=== PATIENT | female | born 1930 | race Caucasian/White ===

== ENCOUNTER 2017-07-09 12:06 | Inpatient (IN) | payer OTHER, MEDICARE ==
[~2017-07-09] VITALS: Ht 149.9 cm; Wt 59.2 kg
[2017-07-09 14:34] LABS: ABSOLUTE BASOPHIL COUNT 0.1 /CUMM (0.0-0.2); ABSOLUTE EOSINOPHIL COUNT 0 /CUMM (0.0-0.7); ABSOLUTE GRANULOCYTE CT 14.3 /CUMM (1.4-6.5); ABSOLUTE LYMPH COUNT 0.7 /CUMM (1.2-3.4); BASOPHIL % 0.4 % (0.0-2.0); EOSINOPHIL % 0 % (0-5); HEMATOCRIT 42.8 % (37-47); MEAN CORPUSCULAR HGB 30.5 PG (27.0-31.0); MEAN CORPUSCULAR VOLUME 92.4 FL (81.0-99.0); MEAN PLATELET VOLUME 7.4 FL (7.4-10.4); PLATELET COUNT 190 /CUMM (130-400); RBC DISTRIBUTION WIDTH 13.7 % (11.5-14.5); RED BLOOD CELL CT 4.64 /CUMM (4.20-5.40)
[2017-07-09 14:46] LABS: PT 12.7 SEC (9.4-12.5); PTT 29 SEC (25-37)
--- NOTE | 2017-07-09 15:05 | ED MVC/FALL/TRAUMA COMPLAINT ---
History of Present Illness General Chief Complaint: Fall Stated Complaint: FALL THIS AM, R HIP PAIN Source: patient Exam Limitations: no limitations Vital Signs & Intake/Output Vital Signs & Intake/Output Vital Signs Date Time Temp Pulse Resp B/P B/P Pulse O2 O2 Flow FiO2 Mean Ox Delivery Rate 07/09 1652 152/73 07/09 1431 97.8 106 20 170/96 96 Room Air 07/09 1223 96.8 104 18 136/72 93 Room Air Triage Note: PT TO ED S/P FALLING WHEN WALKING HER DOG. STATES THE DOG PULLED AND SHE FELL ONTO HER RIGHT SIDE. IS CURRENTLY C/O RT HIP/RT LOWER BACK PAIN. HAS NOT BEEN AMBULATORY MUCH SINCE THE FALL. IS CURRENTY IN W/C IN TRIAGE AND ABLE TO LIFT RIGHT LEG UP. +CMS TO RIGHT LEG. ALSO WAS ABLE TO CROSS RIGHT LEG OVER ONTO THE LEFT DRAFTER CIVIL WELL PER FAMILY MEMBER. DENIES ANY HEAD STRIKE. Triage Nurses Notes Reviewed? yes Onset: Abrupt Duration: day(s): (1), constant, continues in ED, getting worse Timing: single episode today Severity: moderate, severe Severity Numbers: 8 Injuries/Fall Location: lower extremity Method of Injury: fall Loss of Consciousness: no loss of consciousness No Modifying Factors: none LMP (ages 10-50): unknown : No Patient currently breastfeeds: No HPI: 86 year old female past medical history of hypertension and urinary incontinence presents for evaluation after a fall. Patient states she was walking her dog when the dog pulled her causing her to fall. She landed on her right hip. She was unable to get up without help. She was not on the ground for an extended period time. She reports pain in her right hip and lower back. There was no head strike or loss of conscious. No blood thinners. She cannot ambulate. She rates pain as an 8 or 10 is not taking anything. No change in vision nausea vomiting. No other medical problems. (Roland RAINEY,Audie) Allergies Coded Allergies: aspirin (Intermediate, HIVES 07/09/17) morphine (UNKNOWN 07/09/17) Reconcile Medications Lisinopril 20 MG TABLET 1 TAB PO DAILY HTN (Reported) Melatonin 3 MG TABLET 3 MG PO AT BEDTIME PRN INSOMNIA Mirabegron (Myrbetriq) 50 MG TAB.ER.24H 1 TAB PO DAILY BLADDER HEALTH ( Reported) Solifenacin Succinate (Vesicare) 5 MG TABLET 1 TAB PO EOD BLADDER HEALTH ( Reported) Tramadol HCl 50 MG TABLET 1 MG PO Q4P PRN PAIN SCALE 7-10 (SEVERE) Triamterene/Hydrochlorothiazid (Triamterene-Hctz 37.5-25 MG Cp) 37.5 MG-25 MG CAPSULE 1 CAP PO DAILY WATER RETENTION (Reported) (Criss SCRUGGS,Ar Caraballo) Past History Travel History Traveled to [place] past 21 day No Medical History Any Pertinent Medical History? see below for history Cardiovascular: hypertension Renal: urinary incontinence Surgical History Surgical History: non-contributory Psychosocial History What is your primary language Greenlandic Tobacco Use: Never used Family History Hx Contributory? No (Audie Gamble) Review of Systems Review of Systems Constitutional: Reports: no symptoms. Eyes: Reports: no symptoms. Ears, Nose, Throat, Mouth: Reports: no symptoms. Respiratory: Reports: no symptoms. Cardiovascular: Reports: no symptoms. Gastrointestinal/Abdominal: Reports: no symptoms. Genitourinary: Reports: no symptoms. Musculoskeletal: Reports: see HPI, back pain, joint pain, muscle pain, muscle stiffness. Skin: Reports: no symptoms. Neurological/Psychological: Reports: no symptoms. All Other Systems: Reviewed and Negative (Audie Gamble) Physical Exam Physical Exam General Appearance: well developed/nourished, no apparent distress, alert, awake Head: atraumatic, normal appearance Eyes: Bilateral: normal appearance, PERRL, EOMI. Ears, Nose, Throat, Mouth: hearing grossly normal, moist mucous membrane Neck: normal inspection, supple, full range of motion Respiratory: normal breath sounds, chest non-tender, no respiratory distress, lungs clear Cardiovascular: regular rate/rhythm, normal peripheral pulses Peripheral Pulses: 2+ radial (R), 2+ radial (L) Gastrointestinal: normal bowel sounds, soft, non-tender, no organomegaly Back: normal inspection, normal range of motion, LUMBAR PARASPINOUS MUSCLES TENDER TO PALPATION BILATERALLY. nO BRUISING SWELLING OR ABRASIONS NO MIDLINE TENDERNESS TO CELLS OR DEFORMITIES Extremities: RANGE OF MOTION OF THE RIGHT HIP IS REDUCED DUE TO PAIN. tHERE IS BRUISING LATERAL ASPECT OF THE RIGHT HIP. sEVERE TENDERNESS PALPATION AT THE LATERAL ASPECT. fULL RANGE OF MOTION OF THE RIGHT KNEE AND RIGHT ANKLE IS INTACT. nO OTHER JOINT SWELLING OR PAIN NEUROVASCULAR SUPPLY IS INTACT TO THE RIGHT LOWER EXTREMITY. Neurologic/Psych: no motor/sensory deficits, awake, alert, oriented x 3 Skin: intact, normal color, warm/dry Core Measures ACS in differential dx? No CVA/TIA Diagnosis No Sepsis Present: No Sepsis Focused Exam Completed? No (Roland RAINEY,Audie) Progress Differential Diagnosis: abd injury, C/T/L spine injury, ICH, pelvis injury, FRACTURE, CONTUSION, SPRAIN Plan of Care: Orders Procedure Date/time Status PT Evaluate & Treat 07/11 07 Active Nothing by Mouth 07/10 B Active CBC WITHOUT DIFFERENTIAL 07/10 06 Active BASIC ELECTROLYTES PLUS BUN&CR 07/10 06 Active Nothing by Mouth 07/09 D Complete Pathway - chart 07/09 162 Active House Staff 07/09 162 Active Patient Data 07/09 1618 Active Add-on Test (ER Only) 07/09 1419 Active URINALYSIS 07/09 1409 Complete TROPONIN LEVEL 07/09 1409 Complete PARTIAL THROMBOPLASTIN TIME 07/09 1409 Complete PROTHROMBIN TIME 07/09 1409 Complete COMPREHENSIVE METABOLIC PANEL 07/09 1409 Complete CBC WITHOUT DIFFERENTIAL 07/09 1409 Complete EKG 07/09 1409 Active TYPE & SCREEN (NOT X-MATCH) 07/09 1409 Active VTE Mechanical Prophylaxis 07/09 UNK Active Jacinto, Insertion/Removal/Asses 07/09 UNK Active Current Medications Sig/Tana Start time Last Medication Dose Stop Time Status Admin Heparin Sodium 5,000 UNIT Q8 07/09 2200 UNVr (Porcine) Acetaminophen 650 MG Q6P PRN 07/09 1630 UNVr (Tylenol) Sodium Chloride 1,000 ML .[id number] 07/09 1630 UNVr (Normal Saline 0.9%) Laboratory Tests 07/09/17 1615: Urine Color YEL, Urine Clarity CLEAR, Urine pH 7.0, Ur Specific [place] 1.020, Urine Protein TRACE H, Urine Ketones TRACE H, Urine Nitrite NEG, Urine Bilirubin NEG, Urine Urobilinogen 0.2, Ur Leukocyte Esterase NEG, Ur Microscopic SEDIMENT EXAMINED, Urine RBC FEW H, Urine WBC RARE, Ur Epithelial Cells RARE, Urine Bacteria RARE H, Urine Mucus RARE, Urine Hemoglobin TRACE-INTACT, Urine Glucose NEG 07/09/17 1420: Anion Gap 11, Estimated GFR 47 L, BUN/Creatinine Ratio 32.7 H, Glucose 133 H, Calcium 10.2, Total Bilirubin 1.8 H, AST 46 H, ALT 41, Alkaline Phosphatase 56 , Troponin I 0.05, Total Protein 7.3, Albumin 4.4, Globulin 2.9, Albumin/ Globulin Ratio 1.5, PT 12.7 H, INR 1.16, APTT 29, CBC w Diff MAN DIFF ORDERED, RBC 4.64, MCV 92.4, MCH 30.5, MCHC 33.0, RDW 13.7, MPV 7.4, Gran % 89.0 H, Lymphocytes % 4.1 L, Monocytes % 6.5, Eosinophils % 0, Basophils % 0.4, Absolute Granulocytes 14.3 H, Segmented Neutrophils 91 H, Absolute Lymphocytes 0.7 L, Lymphocytes 4 L, Monocytes 4, Absolute Monocytes 1.0 H, Eosinophils 1, Absolute Eosinophils 0, Absolute Basophils 0.1, Platelet Estimate VERIFIED BY SMEAR, Normocytic RBCs VERIFIED, Normochromic RBCs VERIFIED Patient seen and evaluated. She had a mechanical fall landed on her right hip. There was no head strike or loss of conscious. She has severe pain to lateral aspect of the right hip shows has some low back pain. No other injuries. We'll check x-rays of the right hip and lower back. Patient medicated with IV Tylenol. X-rays show a right subcapital impacted hip fracture. Neurovascular is intact. Spoke Darryl Long MD he will be taking the patient to the OR. Patient will be admitted to medicine. Case discussed with Dr. Kahn he agrees. Diagnostic Imaging: Viewed by Me: Radiology Read. Discussed w/RAD: Radiology Read. Radiology Impression: PATIENT: ALKA MONTE PRESENT AGE: 86 PATIENT ACCOUNT NO: [id number] : 30 LOCATION: [facility] ORDERING PHYSICIAN: Audie RAINEY SERVICE DATE: 07/09/17 EXAM TYPE: RAD - XRY-AP PELVIS; XRY-HIP 2-3 VIEWS, RIGHT; XRY-LUMBOSACRAL SPINE 4 VIEWS EXAMINATION: XR PELVIS XR HIP, RIGHT XR LUMBAR SPINE CLINICAL INFORMATION: Right hip pain after fall. Fall onto right hip. Low back pain after fall. COMPARISON: None TECHNIQUE: AP view of the pelvis, 4 views of the lumbar spine, and 2 views of the right hip were performed. FINDINGS: Lumbar spine: There is grade 1 anterolisthesis of L4 on L5 and trace retrolisthesis of L2 on L3 and trace anterolisthesis of L5 on S1. There is intervertebral disc height loss at L2-L3, L3-L4, and L4-L5. There is multilevel facet arthropathy which is moderate at L4- L5 and moderate to severe at L5-S1. No fracture is seen. There is mild levoscoliotic curvature centered in the lower lumbar spine. There are atheromatous calcifications in the abdominal aorta. Pelvis: The pelvic rings are intact. There are mild degenerative changes at the pubic symphysis and at the left more than right sacroiliac joints. The soft tissues are within normal limits. Right hip: There is a fracture through the subcapital neck of the right femur with associated impaction. The femoral neck is foreshortened. There are mild degenerative changes at the right hip joint without joint space loss. Soft tissues appear normal. IMPRESSION: - Impacted right subcapital femoral neck fracture. No dislocation. - No pelvic fracture. - Multilevel degenerative spondylotic changes with grade 1 anterolisthesis of L4 on L5, and multilevel disc height loss and facet arthropathy. DICTATED BY: Lucie Ghosh MD DATE/ TIME DICTATED:07/09/171500 CRITICAL CARE TECHNICIAN:CATALINA DATE/TIME TRANSCRIBED: 07/09/171500 Initial ED EKG: SINUS TACH, LEFT ATRIAL ABN (Audie Gamble) Departure Departure Disposition: STILL A PATIENT Condition: Stable Clinical Impression Primary Impression: Subcapital fracture of hip Qualifiers: Encounter type: initial encounter Fracture type: closed Laterality: right Qualified Code: S72.011A - Unspecified intracapsular fracture of right femur, initial encounter for closed fracture Referrals: Nilson SCRUGGS,Stepan Rodrigues (PCP/Family) Departure Forms: Customer Survey General Discharge Information Admission Note Spoke With: Antonio Yung MD Documentation of Exam: Documentation of any treatments & extenuating circumstances including Concerns Regarding Discharge (functional status, medication knowledge or non-compliance, living conditions, etc.) that warrant an admission rather than observation: [IV pain medicine, case management, physical therapy, orthopedic consult, right hip surgery] (Audie Gamble) Departure Prescriptions: Current Visit Scripts Tramadol HCl 1 MG PO Q4P PRN PAIN SCALE 7-10 (SEVERE) #10 TAB Melatonin 3 MG PO AT BEDTIME PRN INSOMNIA #30 TAB PA/SYSTEM TRAINER Co-Sign Statement Statement: ED Attending supervision documentation- [x] I saw and evaluated the patient. I have also reviewed all the pertinent lab results and diagnostic results. I agree with the findings and the plan of care as documented in the PA's/SYSTEM TRAINER's documentation. Patient presents for evaluation of right hip pain after falling walking her dog. Physical examination reveals tenderness with internal and external rotation of the right hip. [] I have reviewed the ED Record and agree with the PA's/SYSTEM TRAINER's documentation. [] Additions or exceptions (if any) to the PAs/SYSTEM TRAINER's note and plan are summarized below: [] (Criss SCRUGGS,Ar Caraballo)
--- NOTE | 2017-07-09 15:14 | RADIOLOGY REPORT ---
EXAMINATION: XR PELVIS XR HIP, RIGHT XR LUMBAR SPINE CLINICAL INFORMATION: Right hip pain after fall. Fall onto right hip. Low back pain after fall. COMPARISON: None TECHNIQUE: AP view of the pelvis, 4 views of the lumbar spine, and 2 views of the right hip were performed. FINDINGS: Lumbar spine: There is grade 1 anterolisthesis of L4 on L5 and trace retrolisthesis of L2 on L3 and trace anterolisthesis of L5 on S1. There is intervertebral disc height loss at L2-L3, L3-L4, and L4-L5. There is multilevel facet arthropathy which is moderate at L4-L5 and moderate to severe at L5-S1. No fracture is seen. There is mild levoscoliotic curvature centered in the lower lumbar spine. There are atheromatous calcifications in the abdominal aorta. Pelvis: The pelvic rings are intact. There are mild degenerative changes at the pubic symphysis and at the left more than right sacroiliac joints. The soft tissues are within normal limits. Right hip: There is a fracture through the subcapital neck of the right femur with associated impaction. The femoral neck is foreshortened. There are mild degenerative changes at the right hip joint without joint space loss. Soft tissues appear normal. IMPRESSION: - Impacted right subcapital femoral neck fracture. No dislocation. - No pelvic fracture. - Multilevel degenerative spondylotic changes with grade 1 anterolisthesis of L4 on L5, and multilevel disc height loss and facet arthropathy.
--- NOTE | 2017-07-09 16:22 | History & Physical ---
Babita SCRUGGS,[facility] 07/09/17 1622: General Information and HPI MD Statement: I have seen and personally examined ALKA MONTE and documented this H&P. The patient is a 86 year old F who presented with a patient stated chief complaint of [right hip pain]. Source of Information: patient, old records Exam Limitations: clinical condition History of Present Illness: 86 yo F with PMH of hypertension and urinary incontinence presented to the ED for right hip pain after having a fall. The patient states that earlier today she was walking her dog when he pulled her causing her to fall down and landing on her right side. She denies any chest pain, palpitations, lightheadedness, dizziness or any other symptoms proceeding the fall. She denies hitting her head or losing consciousness with the fall. Her son helped her get up. She was brought to the ED for further evaluation. At baseline she is independent and does not require any walking aid. She had similar fall last year when her dog pulled her again at that time. Past History Travel History Traveled to [place] past 21 day No Medical History Cardiovascular: hypertension Renal: urinary incontinence Surgical History Surgical History: non-contributory Review of Systems Review of Systems Constitutional: Denies: chills, fever. EENTM: Reports: no symptoms. Cardiovascular: Denies: chest pain, palpitations. Respiratory: Denies: short of breath. GI: Denies: abdominal pain. Genitourinary: Reports: no symptoms. Musculoskeletal: Denies: joint pain. Skin: Reports: no symptoms. Neurological/Psychological: Reports: no symptoms. Hematologic/Endocrine: Reports: no symptoms. Exam & Diagnostic Data Last 24 Hrs of Vital Signs/I&O Vital Signs Date Time Temp Pulse Resp B/P B/P Pulse O2 O2 Flow FiO2 Mean Ox Delivery Rate 07/09 1431 97.8 106 20 170/96 96 Room Air 07/09 1223 96.8 104 18 136/72 93 Room Air Physical Exam General Appearance Alert, Oriented X3, Cooperative, Mild Distress Skin No Rashes, No Breakdown Skin Temp/Moisture Exam: Warm/Dry Sepsis Skin Exam (color): Normal for Ethnicity HEENT Atraumatic Cardiovascular Normal S1, Normal S2, No Murmurs Lungs Clear to Auscultation, Normal Air Movement Abdomen Soft, No Tenderness Neurological Normal Speech Extremities No Edema Last 24 Hrs of Labs/Beltran: Laboratory Tests 07/09/17 1615: Urine Color Pending, Urine Clarity Pending, Urine pH Pending, Ur Specific [place] Pending, Urine Protein Pending, Urine Ketones Pending, Urine Nitrite Pending, Urine Bilirubin Pending, Urine Urobilinogen Pending, Ur Leukocyte Esterase Pending, Ur Microscopic Pending, Urine Hemoglobin Pending, Urine Glucose Pending 07/09/17 1420: Anion Gap 11, Estimated GFR 47 L, BUN/Creatinine Ratio 32.7 H, Glucose 133 H, Calcium 10.2, Total Bilirubin 1.8 H, AST 46 H, ALT 41, Alkaline Phosphatase 56 , Troponin I 0.05, Total Protein 7.3, Albumin 4.4, Globulin 2.9, Albumin/ Globulin Ratio 1.5, PT 12.7 H, INR 1.16, APTT 29, CBC w Diff MAN DIFF ORDERED, RBC 4.64, MCV 92.4, MCH 30.5, MCHC 33.0, RDW 13.7, MPV 7.4, Gran % 89.0 H, Lymphocytes % 4.1 L, Monocytes % 6.5, Eosinophils % 0, Basophils % 0.4, Absolute Granulocytes 14.3 H, Segmented Neutrophils 91 H, Absolute Lymphocytes 0.7 L, Lymphocytes 4 L, Monocytes 4, Absolute Monocytes 1.0 H, Eosinophils 1, Absolute Eosinophils 0, Absolute Basophils 0.1, Platelet Estimate VERIFIED BY SMEAR, Normocytic RBCs VERIFIED, Normochromic RBCs VERIFIED Assessment/Plan Assessment: 86 yo F with PMH of hypertension and urinary incontinence presented to the ED for right hip pain after having a fall. On admission labs were significant for leukocytosis, mild hyponatremia (Na 136), and elevated BUN/CR of 36 and 1.1. Assessment: 1. Right Femoral Neck Fracture 2. ?SONA 3. History of Hypertension Plan: * Admit to general medicine floor. * Pain control with tylenol and morphine prn * Her RCRI is 0.4% of a major cardiac event. Medically stable for surgery * Ortho consult * Her Cr is slightly elevated. Unclear if this is SONA or if she has CKD. * Will hydrate her with 1 bag of NS @ 75ml/hr * PT/OT eval in am * Diet: NPO for now in anticipation for surgery * DVT Prophylaxis: SC Heparin * Code Status: Full Code As Ranked By This Provider Problem List: 1. Subcapital fracture of hip Qualifiers Encounter type: initial encounter Fracture type: closed Laterality: right Qualified Code: S72.011A - Unspecified intracapsular fracture of right femur, initial encounter for closed fracture Core Measures/Misc (11/22) Acute Coronary Syndrome ACS Diagnosis: No Congestive Heart Failure Congestive Heart Failure Diagnosis No Cerebrovascular Accident CVA/TIA Diagnosis: No VTE (View Protocol) VTE Risk Factors Age>40 No Mechanical VTE Prophylaxis d/t N/A MechProphylax Ordered No VTE Pharm Prophylaxis d/t NA PharmProphylax ordered Sepsis (View protocol) Sepsis Present: No Antonio Yung MD 07/09/17 3218: General Information and HPI Allergies/Medications Allergies: Coded Allergies: aspirin (Intermediate, HIVES 07/09/17) morphine (UNKNOWN 07/09/17) Attending MD Review Statement Attending Statement Attending MD Statement: examined this patient, discuss w/resident/PA/SIDEROGRAPHIST, agreed w/resident/PA/SIDEROGRAPHIST, reviewed EMR data (avail) Attending Assessment/Plan: 86F PMH HTN presenting with fall. Was walking her dog, the dog jerked her arm, and she fell over, landing on her right hip with significant right hip pain and inability to walk, found to have closed right subcapital femoral neck fracture. Did not hit head or lose consciousness, no symptoms prior to or after fall. Non- smoker, no family or personal history of cardiac disease, active, able to walk for long distances and up stairs without SOB or chest pain. EKG NSR, labs normal. Patient is low cardiac risk for surgery. She has taken her BP medications already this morning. She is medically optimized for surgery. See resident note for full details. Plan - Admit to general medicine - Follow orthopedic recommendations - Continue home medications - Tylenol and Percocet PRN pain - PT eval - DVT PPx per orthopedics Brooke Garcia MD 07/10/17 0146: General Information and HPI Allergies/Medications Home Med list Lisinopril 10 MG TABLET 1 TAB PO DAILY HIGH BLOOD PRESSURE (Reported) Mirabegron (Myrbetriq) 50 MG TAB.ER.24H 1 TAB PO DAILY BLADDER HEALTH ( Reported) Solifenacin Succinate (Vesicare) 5 MG TABLET 1 TAB PO EOD BLADDER HEALTH ( Reported) Triamterene/Hydrochlorothiazid (Triamterene-Hctz 37.5-25 MG Cp) 37.5 MG-25 MG CAPSULE 1 CAP PO DAILY WATER RETENTION (Reported) Resident Review Statement Resident Statement: examined this patient, discussed with risk intern, agreed with risk intern Other Findings: 86-year-old female with past medical history of hypertension and overactive bladder who presents following of mechanical fall with right hip fracture after she was pulled down by her dog while walking it. She is now status post right hip repair and clinically stable on the floors. Her RCRI index was 0.4% which is low risk for intraoperative cardiac complications. Assessment 1. Right hip fracture following a mechanical fall-postop day 0 2. Hypertension 3. Overactive bladder 4. Osteoporosis given fracture after fall from standing height Plan -Admit to general medicine floor -Right hip fracture management per orthopedic team -Resume important home medication; would hold thiazides perioperatively and resume them a little later -Monitor CBCs and BEP -Start calcium and Vit D -Start Bowel regimen -DVT prophylaxis is subcutaneous heparin for now; discharge anticoagulation to be determined by orthopedic team -Physical therapy once cleared by orthopedic team -Patient is full code -Heart healthy diet -Ensure adequate pain management
--- NOTE | 2017-07-09 17:27 | Cons- Orthopedic ---
General Information and HPI Consulting Request Date of Consult: 07/09/17 Requested By: Reason for Consult: HIP FRACTURE Source of Information: patient, family Exam Limitations: no limitations History of Present Illness: This 86 year old female with history of hypertension and urinary incontinence presents with right groin pain s/p fall earlier today. She reports while walking her dog this morning, she was pulled by her dog unexpectedly and fell to the ground on her right side. No head trauma. Her son was witness to this event. She immediately felt pain on her right side, and was unable to bear weight following that. Her son brought her to the ED for evaluation. She denies any recent illnesses. No dizziness. No shortness of breath. No chest pains. She denies eating anything today. She drank a glass of water this morning before 9am to take her pills. Allergies/Medications Allergies: Coded Allergies: aspirin (Intermediate, HIVES 07/09/17) morphine (UNKNOWN 07/09/17) Current Medications: Current Medications Sig/Tana Start time Last Medication Dose Route Stop Time Status Admin Acetaminophen 0 .STK-MED ONE 07/09 1637 DC IV Acetaminophen 650 MG Q6P PRN 07/09 1630 UNVr PO Acetaminophen 1,000 MG ONCE ONE 07/09 1545 DC 07/09 N/A 1 UNIT IV 07/09 1559 1634 Heparin Sodium 5,000 UNIT Q8 07/09 2200 UNVr (Porcine) SC Sodium Chloride 1,000 ML .[id number] 07/09 1630 UNVr IV Past History Medical History Cardiovascular: hypertension Renal: urinary incontinence Surgical History Pertinent Surgical History: breast biopsy Family History Relations & Conditions If Any: Relation not specified for: FH: diabetes mellitus FH: hypertension Psychosocial History Where Do You Live? Home Who Do You Live With? child Services at Home: None Primary Language: Ghanaian Smoking Status: Never Smoked ETOH Use: denies use Functional Ability Ambulation: independent Review of Systems Review of Systems: admits: right groin pain denies: dizziness, shortness of breath, chest pains, nausea/vomiting, dysuria Exam & Diagnostic Data Vital Signs and I&O Vital Signs Date Time Temp Pulse Resp B/P B/P Pulse O2 O2 Flow FiO2 Mean Ox Delivery Rate 07/09 1652 152/73 07/09 1431 97.8 106 20 170/96 96 Room Air 07/09 1223 96.8 104 18 136/72 93 Room Air Physical Exam: General - alert & oriented x 3. comfortable. no acute distress. Skin - warm, dry, and smooth. no rashes Lungs - clear bilaterally. no w/r/r. Cardiac - s1s2. tachy rate 90s-100s Abdomen - soft. nontender. Extremities - warm bilaterally. no c/c/e. tenderness along right lateral hip. no rotation or leg length deficits appreciated. calves soft and nontender b/l. palpable DP / PT pulses. nvi. Neuro - no focal deficits. speech smooth and coordinated. Last 24 Hours of Labs: Laboratory Tests 07/09 1615 Urines Urine Color (YEL,AMB,STR) YEL Urine Clarity (CLEAR) CLEAR Urine pH (5.0 - 8.0) 7.0 Ur Specific [place] (1.001 - 1.035) 1.020 Urine Protein (NEG,<30 MG/DL) TRACE H Urine Ketones (NEG) TRACE H Urine Nitrite (NEG) NEG Urine Bilirubin (NEG) NEG Urine Urobilinogen (0.1 - 1.0 EU/dl) 0.2 Ur Leukocyte Esterase (NEG) NEG Ur Microscopic SEDIMENT EXAMINED Urine RBC (0 - 5 /HPF) FEW H Urine WBC (0 - 2 /HPF) RARE Ur Epithelial Cells (NONE,FEW) RARE Urine Bacteria (NEG/NONE) RARE H Urine Mucus (FEW,NONE) RARE Urine Hemoglobin (NEG) TRACE-INTACT Urine Glucose (N MG/DL) NEG 07/09 1420 Chemistry Sodium (137 - 145 mmol/L) 136 L Potassium (3.5 - 5.1 mmol/L) 4.4 Chloride (98 - 107 mmol/L) 99 Carbon Dioxide (22 - 30 mmol/L) 26 Anion Gap (5 - 16) 11 BUN (7 - 17 mg/dL) 36 H Creatinine (0.5 - 1.0 mg/dL) 1.1 H Estimated GFR (>60 ml/min) 47 L BUN/Creatinine Ratio (7 - 25 %) 32.7 H Glucose (65 - 99 mg/dL) 133 H Calcium (8.4 - 10.2 mg/dL) 10.2 Total Bilirubin (0.2 - 1.3 mg/dL) 1.8 H AST (14 - 36 U/L) 46 H ALT (9 - 52 U/L) 41 Alkaline Phosphatase (<127 U/L) 56 Troponin I (< 0.11 ng/ml) 0.05 Total Protein (6.3 - 8.2 g/dL) 7.3 Albumin (3.5 - 5.0 g/dL) 4.4 Globulin (1.9 - 4.2 gm/dL) 2.9 Albumin/Globulin Ratio (1.1 - 2.2 %) 1.5 Coagulation PT (9.4 - 12.5 SEC) 12.7 H INR (0.90 - 1.19) 1.16 APTT (25 - 37 SEC) 29 Hematology CBC w Diff MAN DIFF ORDERED WBC (4.8 - 10.8 /CUMM) 16.0 H RBC (4.20 - 5.40 /CUMM) 4.64 Hgb (12.0 - 16.0 G/DL) 14.1 Hct (37 - 47 %) 42.8 MCV (81.0 - 99.0 FL) 92.4 MCH (27.0 - 31.0 PG) 30.5 MCHC (33.0 - 37.0 G/DL) 33.0 RDW (11.5 - 14.5 %) 13.7 Plt Count (130 - 400 /CUMM) 190 MPV (7.4 - 10.4 FL) 7.4 Gran % (42.2 - 75.2 %) 89.0 H Lymphocytes % (20.5 - 51.1 %) 4.1 L Monocytes % (1.7 - 9.3 %) 6.5 Eosinophils % (0 - 5 %) 0 Basophils % (0.0 - 2.0 %) 0.4 Absolute Granulocytes (1.4 - 6.5 /CUMM) 14.3 H Segmented Neutrophils (42.2 - 75.2 %) 91 H Absolute Lymphocytes (1.2 - 3.4 /CUMM) 0.7 L Lymphocytes (20.5 - 51.1 %) 4 L Monocytes (1.7 - 9.3 %) 4 Absolute Monocytes (0.10 - 0.60 /CUMM) 1.0 H Eosinophils (0 - 5.0 %) 1 Absolute Eosinophils (0.0 - 0.7 /CUMM) 0 Absolute Basophils (0.0 - 0.2 /CUMM) 0.1 Platelet Estimate (ADEQUATE) VERIFIED BY SMEAR Normocytic RBCs VERIFIED Normochromic RBCs VERIFIED Imaging Results: EXAM TYPE: RAD - XRY-AP PELVIS; XRY-HIP 2-3 VIEWS, RIGHT; XRY-LUMBOSACRAL SPINE 4 VIEWS EXAMINATION: XR PELVIS XR HIP, RIGHT XR LUMBAR SPINE CLINICAL INFORMATION: Right hip pain after fall. Fall onto right hip. Low back pain after fall. COMPARISON: None TECHNIQUE: AP view of the pelvis, 4 views of the lumbar spine, and 2 views of the right hip were performed. FINDINGS: Lumbar spine: There is grade 1 anterolisthesis of L4 on L5 and trace retrolisthesis of L2 on L3 and trace anterolisthesis of L5 on S1. There is intervertebral disc height loss at L2-L3, L3-L4, and L4-L5. There is multilevel facet arthropathy which is moderate at L4-L5 and moderate to severe at L5-S1. No fracture is seen. There is mild levoscoliotic curvature centered in the lower lumbar spine. There are atheromatous calcifications in the abdominal aorta. Pelvis: The pelvic rings are intact. There are mild degenerative changes at the pubic symphysis and at the left more than right sacroiliac joints. The soft tissues are within normal limits. Right hip: There is a fracture through the subcapital neck of the right femur with associated impaction. The femoral neck is foreshortened. There are mild degenerative changes at the right hip joint without joint space loss. Soft tissues appear normal. IMPRESSION: - Impacted right subcapital femoral neck fracture. No dislocation. - No pelvic fracture. - Multilevel degenerative spondylotic changes with grade 1 anterolisthesis of L4 on L5, and multilevel disc height loss and facet arthropathy. DICTATED BY: Lucie Ghosh MD DATE/TIME DICTATED:07/09/171500 CNC ROUTER OPERATOR:CATALINA DATE/TIME TRANSCRIBED:07/09/171500 Assessment/Plan Assessment/Plan This 86 year old female with history of hypertension and urinary incontinence, presents with impacted right subcapital femoral neck fracture and dehydration she has been npo all day, except for a glass of water before 9am to take her pills risk assessment as per medical team OR for surgical repair once cleared to be seen shortly by Consult Acknowledgment - Thank you for your consult request.
--- NOTE | 2017-07-09 21:43 | RADIOLOGY REPORT ---
EXAMINATION: XR HIP, RIGHT CLINICAL INFORMATION: Right hip ORIF COMPARISON: 07/09/2017 TECHNIQUE: 2 fluoroscopic views, 66 images of the right hip. Total fluoroscopic time of 83.6 seconds. FINDINGS: The subcapital right femoral neck fracture is again noted. This is reduced to near-anatomic alignment. 3 cannulated screws are then placed across the fracture at the femoral neck. The femoral head is well-seated within the acetabulum. IMPRESSION: Fluoroscopic guidance for internal fixation of subcapital right femoral neck fracture.
[2017-07-09 22:30] VITALS: BP 110/64
[2017-07-10] MEDS ORDERED: TRIAMTERENE-HC1 EAC3 PO (01:48)
[2017-07-10] MEDS ORDERED: MYRBETRIQ50 M1 PO (01:48)
[2017-07-10] MEDS ORDERED: LISINOPRIL10 M1 PO (01:49)
[2017-07-10] MEDS ORDERED: VESICARE5 M1 PO (01:49)
[2017-07-10 02:16] VITALS: BP 120/70
--- NOTE | 2017-07-10 05:08 | PN- Housestaff ---
See Addendum Subjective Follow-up For: Right Femoral Fracture Subjective: Patient was seen and examined at bedside. She reports feeling as well as can be. She has mild pain in her leg. Review of Systems Constitutional: Reports: no symptoms. Objective Last 24 Hrs of Vital Signs/I&O Vital Signs Date Time Temp Pulse Resp B/P B/P Pulse O2 O2 Flow FiO2 Mean Ox Delivery Rate 07/10 0216 97.6 80 16 120/70 96 Room Air 07/09 2230 96.2 82 20 110/64 98 Room Air 07/09 1652 97.6 98 18 152/73 97 Room Air 07/09 1431 97.8 106 20 170/96 96 Room Air 07/09 1223 96.8 104 18 136/72 93 Room Air Intake & Output 07/10 0800 07/10 0000 07/09 1600 Intake Total Output Total Balance Patient 130 lb Weight Weight Bed scale Measurement Method Physical Exam General Appearance: Alert, Oriented X3, Cooperative, No Acute Distress Skin: No Rashes, No Breakdown, dressing intact Skin Temp/Moisture Exam: Warm/Dry Sepsis Skin Exam (color): Normal for Ethnicity HEENT: Atraumatic Cardiovascular: Normal S1, Normal S2, No Murmurs Lungs: Normal Air Movement, decreased in Left lower lobe Abdomen: Soft, No Tenderness Neurological: Normal Speech Extremities: No Edema Last 24 Hrs of Lab/[place] Results Last 24 Hrs of Labs/Mics: Laboratory Tests 07/09/17 1615: Urine Color YEL, Urine Clarity CLEAR, Urine pH 7.0, Ur Specific [place] 1.020, Urine Protein TRACE H, Urine Ketones TRACE H, Urine Nitrite NEG, Urine Bilirubin NEG, Urine Urobilinogen 0.2, Ur Leukocyte Esterase NEG, Ur Microscopic SEDIMENT EXAMINED, Urine RBC FEW H, Urine WBC RARE, Ur Epithelial Cells RARE, Urine Bacteria RARE H, Urine Mucus RARE, Urine Hemoglobin TRACE-INTACT, Urine Glucose NEG 07/09/17 1420: Anion Gap 11, Estimated GFR 47 L, BUN/Creatinine Ratio 32.7 H, Glucose 133 H, Calcium 10.2, Total Bilirubin 1.8 H, AST 46 H, ALT 41, Alkaline Phosphatase 56 , Troponin I 0.05, Total Protein 7.3, Albumin 4.4, Globulin 2.9, Albumin/ Globulin Ratio 1.5, 25-OH Vitamin D Total 71.6, PT 12.7 H, INR 1.16, APTT 29, CBC w Diff MAN DIFF ORDERED, RBC 4.64, MCV 92.4, MCH 30.5, MCHC 33.0, RDW 13.7, MPV 7.4, Gran % 89.0 H, Lymphocytes % 4.1 L, Monocytes % 6.5, Eosinophils % 0, Basophils % 0.4, Absolute Granulocytes 14.3 H, Segmented Neutrophils 91 H, Absolute Lymphocytes 0.7 L, Lymphocytes 4 L, Monocytes 4, Absolute Monocytes 1.0 H, Eosinophils 1, Absolute Eosinophils 0, Absolute Basophils 0.1, Platelet Estimate VERIFIED BY SMEAR, Normocytic RBCs VERIFIED, Normochromic RBCs VERIFIED Microbiology 07/09 2014 URINE ROUT: Urine Culture - RECD Assessment/Plan Assessment: 86 yo F with PMH of hypertension and urinary incontinence presented to the ED for right hip pain after having a fall. On admission labs were significant for leukocytosis, mild hyponatremia (Na 136), and elevated BUN/CR of 36 and 1.1. Assessment: 1. Right Femoral Neck Fracture 2. SONA 3. History of Hypertension Plan: * Continue pain control with tylenol and Percocet prn * Underwent successful repair of femoral neck fracture yesterday. Await Ortho recs for postop DVT prophylaxis (if they want eliquis) * Her Cr was slightly elevated yesterday which has improved this morning. * PT/OT eval. She will likely require STR * Continue Jacinto for now. * Diet: Heart Healthy diet * DVT Prophylaxis: SC Lovenox * Code Status: Full Code Problem List: 1. Subcapital fracture of hip Pain Ratin Pain Location: none Pain Goal: Remain pain free Pain Plan: none Tomorrow's Labs & Rationales: CBC
[2017-07-10 06:33] VITALS: BP 118/80
[2017-07-10 08:24] LABS: ABSOLUTE BASOPHIL COUNT 0 /CUMM (0.0-0.2); ABSOLUTE EOSINOPHIL COUNT 0 /CUMM (0.0-0.7); ABSOLUTE MONOCYTE COUNT 0.4 /CUMM (0.10-0.60); BASOPHIL % 0.1 % (0.0-2.0); MEAN CORPUSCULAR HGB 30.7 PG (27.0-31.0); MEAN CORPUSCULAR HGB CONC 33.4 G/DL (33.0-37.0)
[2017-07-10 08:59] LABS: ABSOLUTE GRANULOCYTE CT 11.6 /CUMM (1.4-6.5); ABSOLUTE LYMPH COUNT 0.7 /CUMM (1.2-3.4); EOSINOPHIL % 0.2 % (0-5); MEAN CORPUSCULAR VOLUME 91.8 FL (81.0-99.0); PLATELET COUNT 158 /CUMM (130-400); RBC DISTRIBUTION WIDTH 13.9 % (11.5-14.5); RED BLOOD CELL CT 3.94 /CUMM (4.20-5.40); WHITE BLOOD CELL COUNT 12.8 /CUMM (4.8-10.8)
[2017-07-10 09:11] LABS: HEMATOCRIT 36.1 % (37-47)
[2017-07-10 09:45] LABS: GRANULOCYTE % 90.8 % (42.2-75.2)
--- NOTE | 2017-07-10 10:20 | PN- Orthopedic ---
See Addendum Subjective Subjective: FEELING WELL, PAIN CONTROLLED W MEDS. NO PARASTHESIAS. NO OOB YET- AWAITING PT Objective Vital Signs and I&Os Vital Signs Date Time Temp Pulse Resp B/P B/P Pulse O2 O2 Flow FiO2 Mean Ox Delivery Rate 07/10 08 Room Air Room Air 07/10 0633 98.1 84 16 118/80 97 Room Air 07/10 0216 97.6 80 16 120/70 96 Room Air 07/09 2230 96.2 82 20 110/64 98 Room Air 07/09 1652 97.6 98 18 152/73 97 Room Air 07/09 1431 97.8 106 20 170/96 96 Room Air 07/09 1223 96.8 104 18 136/72 93 Room Air Intake & Output 07/10 1600 07/10 0807/10 0000 07/09 1600 07/09 0800 07/09 0000 Intake Total 725 Output Total 525 Balance 200 Intake, IV 525 Intake, Oral 200 Output, Urine 525 Patient 130 lb Weight Weight Bed scale Measurement Method Physical Exam: gen- nad card- s1s2 pulm- no audible wheeze ext- r hip dressed- cdi. calves soft nt bl. palp dp. gross sensation intact. + dorsi/plantarflexion Assessment/Plan Assessment/Plan A- POD1 sp R perc pinning of femoral neck fx, stable orthopedically. P- oob, wbat, pt cont hepsq- ?additional anticoag- will lalo garcia prn pain meds dressing change pod2 will lalo attending
--- NOTE | 2017-07-10 13:00 | Operative Report ---
Operative/Inv Procedure Report Surgery Date: 07/09/17 Name of Procedure: 1) Right Hip Femoral Neck Fracture Closed Optimization Of Alignment And Minimally Invasive Open Interfragmentary Screw Fixation (Ethan) 2) Right Hip Intraoperative Fluoroscopic Assessment Of Femoral Neck Fracture Alignment And Cannulated Screw Fixation (Ethan) Pre-Operative Diagnosis: Primary Surgically Treated Diagnoses: 1) Right Hip Nondisplaced, Slightly Valgus Impacted Femoral Neck Fracture Post-Operative Diagnosis: Intraoperative And Postoperative Diagnoses Relevant To Postoperative Care: 1) Right Hip Femoral Neck Fracture Potential Early Postoperative (Post- Fixation And [id number]) Microinstability Requiring Acute Postoperative Weight Bearing, Motion And Activity Monitored Progression In Supervised And Function-Assisted Hospital And Then Rehabilitation Facility Environment For Optimized Symptom Control, Minimized Risk Of Fixation And Fracture Displacement, Optimized Fracture Healing, Minimized Fall Risk, Tenriism Of Function And Ambulation, Medical And Post-Trauma Monitoring As Well As For Optimized Overall Outcome Given Her Age And Preinjury Medical History 2) Expected Acute Postoperative Right Hip Region Pain Requiring Early Postoperative Intravenous Narcotic Analgesic Pain Medication As Needed Coverage And Inpatient Nursing Observation For Medication Administration And Monitoring To Avoid Excessive Sedation Following Standard And Uncomplicated Femoral Neck Fracture Internal Fixation 3) Expected Acute Postoperative Right Hip Region Muscular Spasm Likely Requiring Early Postoperative Muscle Relaxant Medication As Needed Coverage And Inpatient Nursing Observation For Medication Administration And Monitoring To Avoid Excessive Sedation Following Standard And Uncomplicated Femoral Neck Fracture Internal Fixation 4) Right Hip Acute Femoral Neck Fracture Internal Fixation Postprocedural Status 5) Presence Of Right Hip Femoral Neck Fracture Internal Fixation Partially Threaded Cannulated Interfragmentary Screw Implants Estimated Blood Loss: less than 50ml Surgeon/Fleet Operations Manager: ETHAN SCRUGGS,LIZABETH Talbot - Primary Admitting Orthopaedic Surgeon Anesthesia: laryngeal mask airway (primary spinal -> sec general), initial primary spinal with intraoperative conversion to laryngeal mask airway general Monitors: Standard spinal and subsequent general anesthesia as well as other perioperative monitoring was performed per anesthesia protocols. Refer to anesthesia records for details. IV Fluids: Standard anesthesia fluid management was performed without requirement for additional or emergent fluid resuscitation. Refer to anesthesia records for details. Implants: Implants Placed: Inverted Triangular Configuration Of Pamela Asnis III Stainless Steel Interfragmentary Screw Implants: Anterior-Superior Interfragmentary Screw Implant: 1 x 85 mm length [place] Asnis III 6.5 mm Short (20 mm) Partially Threaded Cannulated Screw Posterior-Superior Interfragmentary Screw Implant: 1 x 90 mm length [place] Asnis III 6.5 mm Short (20 mm) Partially Threaded Cannulated Screw Inferior Interfragmentary Screw Implant: 1 x 95 mm length [place] Asnis III 6.5 mm Short (20 mm) Partially Threaded Cannulated Screw Urine Output: Refer to anesthesia records for details. Drains: None Specimens: None Complications: None Operative/Procedure Note Note: Preoperative Holding Area Assessment/Preparation: The patient was evaluated in the preoperative holding area prior to surgery and no clinical changes or contraindications to surgical intervention were documented compared to the preoperative orthopaedic admission and medical consultation clearance evaluations. The surgical plan and site were confirmed with the patient and her son following which all preoperative paperwork was finalized. All reasonable treatment options were reviewed in detail along with associated potential benefits and risks including specific and general categories of risk from temporary and minor to catastrophic sequelae and outcomes. Although generalized estimates of prognosis were discussed based on available literature as well as surgeon and communicated surgical community experience, she clearly understood and accepted that these estimates were intended as gross and relative comparisons for purposes of assisting her in making decisions regarding treatment options and that the values given have a wide range of variation with limited predictability. No guarantees were given. The patient appeared to have appropriate understanding of the implications and potential consequences of her condition and the surgical treatment being discussed. She asked appropriate questions all of which were answered to her satisfaction. She was able to recall details of the discussion without suggestion of cognitive deficit that might interfere with her ability to provide informed consent per standard preoperative consent protocols. The patient's son participated in the consent process and all of his questions were answered as well however ultimately the patient was felt to be appropriate to make her own decisions and did so without any significant influence from any other republican. Signed operative consent was obtained directly from the patient with good understanding of all reasonable alternatives, indications, goals, expectations, limitations, risks and benefits of the planned procedure. The region of the intended surgical site was cleansed, prepped and marked per protocol. The surgeon, anesthesia care team members, and operating room staff confirmed the patient identity, surgical procedure, and operative site as well as other clinical details with the patient and her son in an initial documented preoperative confirmation (awake time out) prior to the administration of sedation or anesthesia. Surgical Procedure: The procedure was performed by Dr. Long who was present and served as the primary surgeon for all critical intraoperative and perioperative decisions and interventions. Set-Up/Positioning/Exposure - The patient was brought to the operating room in stable condition and underwent uncomplicated placement of spinal anesthesia supplemented with intravenous sedation followed by placement of all appropriate monitors, lines and catheters without difficulty. Later during the procedure, secondary to mild but increasing agitation, oxygen saturation decrease and hemodynamic lability, a laryngeal mask airway was placed and general anesthesia used with excellent subsequent control and stable anesthetic management for the remainder of the case. Antibiotic (Ancef 2 grams IV) was given for surgical prophylaxis based on patient body mass and per orthopaedic surgical minimally invasive open internal fixation fracture care operative protocols. Antibiotic administration was completed at least 30 and less than 60 minutes prior to making an incision. The patient was positioned supine on the operating traction table in standard fashion for a right hip fracture closed optimization of alignment and minimally invasive open cannulated screw internal fixation taking care to protect and stabilize the hip during transfer, abduct the left arm on an arm board and adduct the right arm over the torso on a pillow so as to avoid positions of nerve stretch with all pressure points carefully padded. The pelvis was stabilized against the perineal post and the right foot was well padded and secured in the traction boot. The left leg was flexed, abducted and internally rotated as much as possible without causing increased soft tissue tension and secured on the padded leg rodney in that position (optimized for right hip fluoroscopic imaging) taking care to pad all pressure points and document adequate baseline pulse and capillary refill before proceeding. Minimal longitudinal traction was applied to the operative leg through the foot secured in the traction boot only sufficient to optimally position the hip and leg for fluoroscopically guided minimally invasive internal fracture fixation but not so much that the fracture would be at risk of displacement. The operative foot and leg were slightly internally rotated so as to optimize fixation screw trajectory and, again, care was taken to avoid any torsional force which would potentially risk fracture displacement or microvascular disruption with possible associated avascular necrosis. The possibility of this outcome even with optimized positioning and minimized manipulation was discussed preoperatively and accepted by the patient. Optimal alignment was documented on preincision intraoperative AP, lateral and oblique fluoroscopic spot views. No significant change in fracture alignment, fracture fragment position or orientation was noted compared to preoperative images. The surgeon, anesthesia care team, and operating room staff again documented the patient identity, surgical procedure, and operative site as well as other clinical details in a final documented confirmation (final time out) prior to beginning the procedure. Exposure - Sterile prep and drape were performed using standard technique with DuraPrep and an Ioban antimicrobial incise curtain drape. Reference lines for the femoral neck and shaft as well as the screw entry point at the lateral flare of the proximal femur were drawn with a marking pen along a radiopaque marker placed on the skin and projected over these structures on AP, lateral and oblique fluoroscopic views. The extent of the incision was then marked and this linear incision was made longitudinally along the proximal lateral thigh extending distally from the femoral flare for approximately 5 cm using a #10 scalpel blade. Hemostasis was achieved using Bovie electrocautery beginning with the skin edges of the incision and continuing throughout the procedure where necessary. The dissection was carried down through the subcutaneous layer and the fascia was divided longitudinally in line with and throughout the length of the small skin incision using Metzenbaum scissors with a blunt spreading dissection technique. Further subfascial Metzenbaum blunt dissection was carried down to the lateral cortical surface of the femur. Each successive layer was dissected slightly more proximally than the one superficial to it taking an overall superomedial approach to match the intended guidepin and screw trajectory along the angle of the femoral neck. The patient's fascia and muscular tissue was quite friable and tended to be easily macerated by standard dissection, drilling and screw placement despite protecting these tissue throughout each of these phases of the procedure. Fortunately, this did not appear to disrupt the integrity of the lateral fascial and muscular tissue significantly and these tissues were able to be reapproximated anatomically at the end of the procedure with nothing to suggest that her friable tissue would adversely affect outcome in this case. Minimally Invasive Open Cannulated Screw Internal Fixation - Three partially threaded guide pins were then advanced through the incision and dissected surgical site down to the lateral femoral cortex where the longitudinal levels of the three pin and subsequent screw entry points were confirmed to be optimal on AP fluoroscopic view. The pins were then advanced into the bone and across the fracture site into the femoral head fragment using a drill with freehand technique while checking trajectory and length on orthogonal C-arm views to insure inverted triangular configuration placement crossing perpendicular to the fracture line and centered about a line parallel and just inferior to the central axis of the femoral neck and head. C-arm views were also checked to insure that the depths of the guide-pin tips were approximately 5 mm below the chondral surface of the joint. The slotted depth gauge was used to measure the appropriate screw lengths from the lateral femoral cortex per its subtraction measurement design. The cannulated cortical entry hole drill bit was used to drill the proximal path for the cannulated screws with AP C-arm views monitoring the depth and trajectory of the drill bit and guide pin to insure maintenance of central path in the femoral neck and head, drill tip depth through the lateral femoral cortical surface, across the fracture site and to approximately 1 cm below the chondral surface with no binding or advancement of the guide-pin toward the hip joint surface. Fracture line and fracture fragment alignment, orientation and configuration were closely observed and confirmed to be optimal, unchanged and without fragment rotation, fracture line widening or other fracture motion and without joint surface penetration throughout the process of pin placement. The three partially threaded, cancellous Asnis III cannulated screws were then advanced over the guide-pins, through the lateral femoral cortical opening created by the cannulated drill, across the femoral neck perpendicular to the fracture line and into the femoral head with very good overall insertional and final fixation torque (particularly considering patient age, both pre-operative radiographic and intra-operative fluoroscopic evidence of osteopenia and current diagnosis of osteoporosis based on World [employer] Organization fracture criteria). Placement was monitored with AP and lateral orthogonal fluoroscopic views to insure that the proper depth was achieved with the distal ends of the screws at approximately 5 mm below the chondral surface and with the proximal head end of each screw abutting against the lateral femoral cortex for optimal combination of fracture fragment fixation and minimized risk of postoperative complications. Care was taken to avoid any rotation of the femoral head fragment during interfragmentary lag screw insertion by sequentially partially advancing and tightening the screws. Fracture line and fracture fragment alignment, orientation and configuration were closely observed and confirmed to be optimal, unchanged and without fragment rotation, fracture line widening or joint surface penetration throughout the process of pin placement, drilling and final screw fixation. The final position of the three cannulated, partially threaded interfragmentary fixation screws was confirmed to be in an inverted triangular configuration for optimal fixation and stability on orthogonal C-arm views. Finally, the leg was rotated under fluoroscopic imaging to document stable fracture fixation and coplanar singular fracture fragment rotational hip motion without any motion across the fracture line on dynamic fluoroscopic evaluation and without screw penetration too close to the femoral articular surface on multiple angle projections. Final fluoroscopic images were saved to the hospital PACS system prior to closure. Closure/Recovery - The surgical site was thoroughly irrigated and hemostasis was carefully achieved prior to closure. Initial counts were correct. The edge of the tensor and vastus lateralis fascia was reapproximated using a few interrupted simple #2 -0 Vicryl sutures. The deep and superficial subcutaneous closure was achieved with #2-0 dyed and #3-0 undyed Vicryl respectively using an inverted, interrupted technique. The skin was closed using sarah with the skin edges everted. A standard, sterile Xeroform, fluff 6X6 gauze and ABD pad dressing was placed with good surgical site coverage and was held in place with foam tape. All counts were correct prior to removing the drapes. The foot section of the table was reattached and the patient's lower extremities were removed from the traction table attachments and returned to their neutral resting positions. Bilateral pulses and capillary refill were confirmed to be normal and similar to preoperative status. The LMA was removed without difficulty and the patient was transferred to the hospital bed in the supine position taking care to support the pelvis, hips and lower extremities in the neutral position during transfer. Recovery Room Assessment: The patient was transported to the recovery room in stable condition where gross neurological examination showed no deficits on initial recovery from anesthesia. She will follow the usual postoperative protocol for minimally invasive open interfragmentary cannulated screw internal fixation of nondisplaced, slightly valgus impacted, anatomically well-aligned, overall stable configuration and well fixed subcapital femoral neck hip fracture. This will include early mobilization, supervised transfers and ambulation with progressive protected weight-bearing as tolerated using a walker, and discharge planning in preparation for transfer to an inpatient rehabilitation program as the patient is an excellent short-term rehabilitation candidate by orthopaedic criterion. Because of the impacted nature of her fracture, she will be monitored closely through the office with serial radiographs to rule out avascular or accelerated degenerative changes. Discharge Disposition: PACU CC: Ethan SCRUGGS,Lizabeth Talbot
[2017-07-10 14:34] VITALS: BP 140/68
[2017-07-10 22:28] VITALS: BP 140/80
[2017-07-11 06:47] VITALS: BP 100/64
--- NOTE | 2017-07-11 07:35 | PN- Orthopedic ---
Subjective Subjective: Reports pain not well controlled yesterday. Out of bed with PT with a lot of discomfort. Feeling better this morning, as she was able to sleep overnight. Although she reports history of occasional vertigo symptoms, she has not experienced this in the hospital. No dizziness. No shortness of breath. No chest pains. She anticipates talking with case finisher today about rehab choices. She is asking for medication to help her with constipation. Objective Vital Signs and I&Os Vital Signs Date Time Temp Pulse Resp B/P B/P Pulse O2 O2 Flow FiO2 Mean Ox Delivery Rate 07/11 646 97.6 82 22 100/64 94 Room Air 07/11 0000 Room Air 07/10 2228 99.2 92 20 140/80 94 Room Air 07/10 1434 97.6 90 20 140/68 98 07/10 1104 82 120/60 07/10 0827 Room Air Room Air Intake & Output 07/11 0800 07/11 0000 07/10 1600 07/10 0807/10 0000 07/09 1600 Intake Total 859 323 8847 725 Output Total 550 800 450 525 Balance -190 -200 550 200 Intake, IV 150 525 Intake, Oral 360 600 850 200 Output, Urine 550 800 450 525 Patient 130 lb Weight Weight Bed scale Measurement Method Physical Exam: General - alert & oriented x 3. comfortable. no acute distress. Lungs - clear bilaterally. no w/r/r. Cardiac - s1s2. reg. Abdomen - soft. nontender. - mott draining clear, yellow urine. Extremities - warm bilaterally. right hip dressing changed. incision well approximated with sarah. no erythema or exudates. some ecchymoses noted around the incision. calves soft and nontender b/l. athrombics in place. nvi. Current Medications: Current Medications Sig/Tana Start time Last Medication Dose Route Stop Time Status Admin Acetaminophen 650 MG .STK-MED ONE 07/10 1547 DC PO 07/10 1548 Acetaminophen 650 MG .STK-MED ONE 07/10 921 DC PO 07/10 922 Acetaminophen 650 MG Q6P PRN 07/09 1630 AC 07/10 PO 1549 Bisacodyl 10 MG DAILY NEEDED PRN 07/11 0730 AC IL Calcium Carbonate 1,250 MG DAILY 07/10 899 AC 07/10 PO 09 Cholecalciferol 1,000 IU DAILY 07/10 899 AC 07/10 PO 0926 Docusate Sodium 100 MG BID 07/11 899 AC PO Enoxaparin Sodium 30 MG DAILY 07/10 899 DC SC Enoxaparin Sodium 30 MG DAILY 07/10 899 AC 07/10 SC 1105 Heparin Sodium 5,000 UNIT Q8 07/09 2199 DC 07/10 (Porcine) SC 0541 Lisinopril 20 MG DAILY 07/11 899 DC PO Lisinopril 20 MG DAILY 07/10 1045 AC 07/10 PO 1104 Lisinopril 10 MG DAILY 07/10 899 DC PO Melatonin 3 MG ONCE ONE 07/10 2014 DC 07/10 PO 07/10 Oxybutynin Chloride 5 MG Q48@2100 07/10 2099 AC PO Oxybutynin Chloride 5 MG Q48 07/10 899 DC PO Oxycodone/ 1 TAB Q4P PRN 07/09 211 AC Acetaminophen PO Polyethylene Glycol 17 GM DAILY 07/10 899 AC 07/10 PO 09 Senna/Docusate Sodium 2 TAB DAILY PRN 07/10 0230 AC 07/10 PO 2259 Sodium Chloride 1,000 ML .[id number] 07/09 1630 DC 07/09 IV 2252 Tetrahydrozoline HCl 1 GTT BID PRN 07/10 0115 AC 07/10 OPH 2049 Tramadol HCl 50 MG ONCE ONE 07/10 2029 DC 07/10 PO 07/10 Results Last 48 Hours of Labs: Laboratory Tests 07/10 07/09 0745 1615 Chemistry Sodium (137 - 145 mmol/L) 134 L Potassium (3.5 - 5.1 mmol/L) 4.2 Chloride (98 - 107 mmol/L) 103 Carbon Dioxide (22 - 30 mmol/L) 23 Anion Gap (5 - 16) 9 BUN (7 - 17 mg/dL) 30 H Creatinine (0.5 - 1.0 mg/dL) 0.9 Estimated GFR (>60 ml/min) 59 L BUN/Creatinine Ratio (7 - 25 %) 33.3 H Hematology CBC w Diff NO MAN DIFF REQ WBC (4.8 - 10.8 /CUMM) 12.8 H RBC (4.20 - 5.40 /CUMM) 3.94 L Hgb (12.0 - 16.0 G/DL) 12.1 Hct (37 - 47 %) 36.1 L MCV (81.0 - 99.0 FL) 91.8 MCH (27.0 - 31.0 PG) 30.7 MCHC (33.0 - 37.0 G/DL) 33.4 RDW (11.5 - 14.5 %) 13.9 Plt Count (130 - 400 /CUMM) 158 MPV (7.4 - 10.4 FL) 8.0 Gran % (42.2 - 75.2 %) 90.8 H Lymphocytes % (20.5 - 51.1 %) 5.4 L Monocytes % (1.7 - 9.3 %) 3.5 Eosinophils % (0 - 5 %) 0.2 Basophils % (0.0 - 2.0 %) 0.1 Absolute Granulocytes (1.4 - 6.5 /CUMM) 11.6 H Absolute Lymphocytes (1.2 - 3.4 /CUMM) 0.7 L Absolute Monocytes (0.10 - 0.60 /CUMM) 0.4 Absolute Eosinophils (0.0 - 0.7 /CUMM) 0 Absolute Basophils (0.0 - 0.2 /CUMM) 0 Urines Urine Color (YEL,AMB,STR) YEL Urine Clarity (CLEAR) CLEAR Urine pH (5.0 - 8.0) 7.0 Ur Specific [place] (1.001 - 1.035) 1.020 Urine Protein (NEG,<30 MG/DL) TRACE H Urine Ketones (NEG) TRACE H Urine Nitrite (NEG) NEG Urine Bilirubin (NEG) NEG Urine Urobilinogen (0.1 - 1.0 EU/dl) 0.2 Ur Leukocyte Esterase (NEG) NEG Ur Microscopic SEDIMENT EXAMINED Urine RBC (0 - 5 /HPF) FEW H Urine WBC (0 - 2 /HPF) RARE Ur Epithelial Cells (NONE,FEW) RARE Urine Bacteria (NEG/NONE) RARE H Urine Mucus (FEW,NONE) RARE Urine Hemoglobin (NEG) TRACE-INTACT Urine Glucose (N MG/DL) NEG 07/09 1420 Chemistry Sodium (137 - 145 mmol/L) 136 L Potassium (3.5 - 5.1 mmol/L) 4.4 Chloride (98 - 107 mmol/L) 99 Carbon Dioxide (22 - 30 mmol/L) 26 Anion Gap (5 - 16) 11 BUN (7 - 17 mg/dL) 36 H Creatinine (0.5 - 1.0 mg/dL) 1.1 H Estimated GFR (>60 ml/min) 47 L BUN/Creatinine Ratio (7 - 25 %) 32.7 H Glucose (65 - 99 mg/dL) 133 H Calcium (8.4 - 10.2 mg/dL) 10.2 Total Bilirubin (0.2 - 1.3 mg/dL) 1.8 H AST (14 - 36 U/L) 46 H ALT (9 - 52 U/L) 41 Alkaline Phosphatase (<127 U/L) 56 Troponin I (< 0.11 ng/ml) 0.05 Total Protein (6.3 - 8.2 g/dL) 7.3 Albumin (3.5 - 5.0 g/dL) 4.4 Globulin (1.9 - 4.2 gm/dL) 2.9 Albumin/Globulin Ratio (1.1 - 2.2 %) 1.5 25-OH Vitamin D Total (30 - 100 ng/ml) 71.6 Coagulation PT (9.4 - 12.5 SEC) 12.7 H INR (0.90 - 1.19) 1.16 APTT (25 - 37 SEC) 29 Hematology CBC w Diff MAN DIFF ORDERED WBC (4.8 - 10.8 /CUMM) 16.0 H RBC (4.20 - 5.40 /CUMM) 4.64 Hgb (12.0 - 16.0 G/DL) 14.1 Hct (37 - 47 %) 42.8 MCV (81.0 - 99.0 FL) 92.4 MCH (27.0 - 31.0 PG) 30.5 MCHC (33.0 - 37.0 G/DL) 33.0 RDW (11.5 - 14.5 %) 13.7 Plt Count (130 - 400 /CUMM) 190 MPV (7.4 - 10.4 FL) 7.4 Gran % (42.2 - 75.2 %) 89.0 H Lymphocytes % (20.5 - 51.1 %) 4.1 L Monocytes % (1.7 - 9.3 %) 6.5 Eosinophils % (0 - 5 %) 0 Basophils % (0.0 - 2.0 %) 0.4 Absolute Granulocytes (1.4 - 6.5 /CUMM) 14.3 H Segmented Neutrophils (42.2 - 75.2 %) 91 H Absolute Lymphocytes (1.2 - 3.4 /CUMM) 0.7 L Lymphocytes (20.5 - 51.1 %) 4 L Monocytes (1.7 - 9.3 %) 4 Absolute Monocytes (0.10 - 0.60 /CUMM) 1.0 H Eosinophils (0 - 5.0 %) 1 Absolute Eosinophils (0.0 - 0.7 /CUMM) 0 Absolute Basophils (0.0 - 0.2 /CUMM) 0.1 Platelet Estimate (ADEQUATE) VERIFIED BY SMEAR Normocytic RBCs VERIFIED Normochromic RBCs VERIFIED Assessment/Plan Assessment/Plan This 86-year-old female with past medical history of hypertension and overactive bladder, is POD#2 s/p percutaneous pinning of her right femoral neck fracture tolerating diet percocet prn pain control dressing changed d/c mott colace BID / miralax daily / dulcolax prn continue PT, wbat case management to assist with likely str placement ?tomorrow will d/w
[2017-07-11 08:40] LABS: ABSOLUTE BASOPHIL COUNT 0 /CUMM (0.0-0.2); ABSOLUTE EOSINOPHIL COUNT 0.4 /CUMM (0.0-0.7); ABSOLUTE GRANULOCYTE CT 5.5 /CUMM (1.4-6.5); ABSOLUTE LYMPH COUNT 1.2 /CUMM (1.2-3.4); ABSOLUTE MONOCYTE COUNT 0.4 /CUMM (0.10-0.60); BASOPHIL % 0.4 % (0.0-2.0); EOSINOPHIL % 4.9 % (0-5); GRANULOCYTE % 73.1 % (42.2-75.2); MEAN CORPUSCULAR HGB 30.8 PG (27.0-31.0); MEAN CORPUSCULAR HGB CONC 33.6 G/DL (33.0-37.0); MEAN CORPUSCULAR VOLUME 91.7 FL (81.0-99.0); MEAN PLATELET VOLUME 7.9 FL (7.4-10.4); PLATELET COUNT 128 /CUMM (130-400); RBC DISTRIBUTION WIDTH 14.2 % (11.5-14.5); RED BLOOD CELL CT 3.49 /CUMM (4.20-5.40); WHITE BLOOD CELL COUNT 7.6 /CUMM (4.8-10.8)
--- NOTE | 2017-07-11 10:43 | PN- Housestaff ---
See Addendum Subjective Follow-up For: Right femoral neck fracture Subjective: No overnight events. Patient says her new pigment regimen works well but she is now constipated. Last bowel movement was 3 days ago. No other complaints. Review of Systems Constitutional: Reports: no symptoms. EENTM: Reports: no symptoms. Cardiovascular: Reports: no symptoms. Respiratory: Reports: no symptoms. Gastrointestinal: Reports: see HPI. Genitourinary: Reports: no symptoms. Musculoskeletal: Reports: no symptoms. Skin: Reports: no symptoms. Neurological/Psychological: Reports: no symptoms. Hematologic/Endocrine: Reports: no symptoms. Immunologic/Allergic: Reports: no symptoms. Objective Last 24 Hrs of Vital Signs/I&O Vital Signs Date Time Temp Pulse Resp B/P B/P Pulse O2 O2 Flow FiO2 Mean Ox Delivery Rate 07/11 0547 97.6 82 22 100/64 94 Room Air 07/11 0000 Room Air 07/10 2228 99.2 92 20 140/80 94 Room Air 07/10 1434 97.6 90 20 140/68 98 07/10 1104 82 120/60 Intake & Output 07/11 1600 07/11 0800 / 0000 Intake Total 360 600 Output Total 550 800 Balance -190 -200 Intake, Oral 360 600 Output, Urine 550 800 Physical Exam General Appearance: Alert, Oriented X3, Cooperative, No Acute Distress Cardiovascular: Regular Rate, Normal S1, Normal S2 Lungs: Clear to Auscultation Abdomen: Normal Bowel Sounds, Soft, No Tenderness Extremities: No Edema, Normal Pulses, No Tenderness/Swelling Current Medications: Current Medications Sig/Tana Start time Last Medication Dose Route Stop Time Status Admin Acetaminophen 1,000 MG Q6H 07/11 1030 AC 07/11 N/A 1 UNIT IV 07/12 0444 1040 Acetaminophen 650 MG .STK-MED ONE 07/10 1547 DC PO 07/10 1548 Acetaminophen 650 MG Q6P PRN 07/09 1630 DC 07/10 PO 1549 Bisacodyl 10 MG DAILY NEEDED PRN 07/11 0730 AC WV Calcium Carbonate 1,250 MG DAILY 07/10 899 AC 07/11 PO 0958 Cholecalciferol 1,000 IU DAILY 07/10 899 AC 07/11 PO 0957 Docusate Sodium 100 MG BID 07/11 899 AC 07/11 PO 0958 Enoxaparin Sodium 30 MG DAILY 07/10 0900 AC 07/11 SC 0958 Lisinopril 20 MG DAILY 07/10 1045 AC 07/11 PO 0958 Melatonin 3 MG ONCE ONE 07/10 2014 DC 07/10 PO 07/10 Oxybutynin Chloride 5 MG Q48@2100 07/10 2100 AC PO Oxycodone/ 2 TAB Q4-6 PRN PRN 07/11 0745 DC Acetaminophen PO Oxycodone/ 1 TAB Q4P PRN 07/09 211 DC Acetaminophen PO Polyethylene Glycol 17 GM DAILY 07/10 09 AC 07/11 PO 09 Senna/Docusate Sodium 2 TAB DAILY PRN 07/10 0230 AC 07/10 PO 2259 Tetrahydrozoline HCl 1 GTT BID PRN 07/10 0115 AC 07/10 OPH 2049 Tramadol HCl 50 MG Q4-6 PRN PRN 07/11 1030 AC 07/11 PO 1041 Tramadol HCl 50 MG ONCE ONE 07/10 2029 DC 07/10 PO 07/10 Last 24 Hrs of Lab/Beltran Results Last 24 Hrs of Labs/Mics: Laboratory Tests 07/11/17 0750: Anion Gap 7, Estimated GFR 59 L, BUN/Creatinine Ratio 31.1 H, CBC w Diff NO MAN DIFF REQ, RBC 3.49 L, MCV 91.7, MCH 30.8, MCHC 33.6, RDW 14.2, MPV 7.9, Gran % 73.1, Lymphocytes % 16.1 L, Monocytes % 5.5, Eosinophils % 4.9, Basophils % 0.4, Absolute Granulocytes 5.5, Absolute Lymphocytes 1.2, Absolute Monocytes 0.4, Absolute Eosinophils 0.4, Absolute Basophils 0 Assessment/Plan Assessment: 86 yo F with PMH of hypertension and urinary incontinence presented to the ED for right hip pain after having a fall. On admission labs were significant for leukocytosis, mild hyponatremia (Na 136), and elevated BUN/CR of 36 and 1.1. Assessment: 1. Right Femoral Neck Fracture 2. SONA 3. History of Hypertension Plan: * Continue pain control with tylenol and tramadol * Underwent successful repair of femoral neck fracture. Await Ortho recs for postop DVT prophylaxis (if they want eliquis) * Her Cr was slightly elevated yesterday which has improved this morning. * PT/OT eval. She will likely require STR * Stop Jacinto Bowel regimen * Diet: Heart Healthy diet * DVT Prophylaxis: SC Lovenox * Code Status: Full Code Problem List: 1. Subcapital fracture of hip Pain Ratin Pain Location: no Pain Goal: Remain pain free Pain Plan: see a/p Tomorrow's Labs & Rationales: no
[2017-07-11 15:18] VITALS: BP 132/84
[2017-07-11 22:20] VITALS: BP 120/60
[2017-07-12 06:02] VITALS: BP 120/64
--- NOTE | 2017-07-12 07:02 | PN- Housestaff ---
Sharon SCRUGGS,Rosaura 07/12/17 0702: Subjective Follow-up For: Right femoral neck fracture status post pinning Subjective: Patient seen and examined at bedside. No overnight events. Denies pain in her operated right hip. Denies shortness of breath, chest pain. Review of Systems Constitutional: Reports: no symptoms, see HPI. Objective Last 24 Hrs of Vital Signs/I&O Vital Signs Date Time Temp Pulse Resp B/P B/P Pulse O2 O2 Flow FiO2 Mean Ox Delivery Rate 07/12 0946 86 120/64 07/12 0602 98.7 86 20 120/64 94 Room Air 07/11 2220 98.9 86 20 120/60 92 Room Air 07/11 1518 98.4 82 20 132/84 94 Intake & Output 07/12 1600 07/12 0800 07/12 0000 Intake Total 225 225 Output Total Balance 225 225 Intake, IV 125 125 Intake, Oral 100 100 Physical Exam General Appearance: Alert, Oriented X3, Cooperative, No Acute Distress Cardiovascular: Normal S1, Normal S2, No Murmurs Lungs: Normal Air Movement Abdomen: Soft, No Tenderness, No Hepatospenomegaly Neurological: Strength at 5/5 X4 Ext, Normal Tone, Sensation Intact Extremities: No Cyanosis, No Edema, Normal Pulses Current Medications: Current Medications Sig/Tana Start time Last Medication Dose Route Stop Time Status Admin Acetaminophen 1,000 MG Q6H 07/11 1030 DC 07/12 N/A 1 UNIT IV 07/12 0444 0543 Bisacodyl 10 MG DAILY NEEDED PRN 07/11 0730 AC 07/11 NJ 1059 Calcium Carbonate 1,250 MG DAILY 07/10 899 AC 07/12 PO 0947 Cholecalciferol 1,000 IU DAILY 07/10 899 AC 07/12 PO 0947 Docusate Sodium 100 MG BID 07/11 899 AC 07/12 PO 0947 Enoxaparin Sodium 30 MG DAILY 07/10 899 AC 07/12 SC 0947 Lisinopril 20 MG DAILY 07/10 1045 AC 07/12 PO 0946 Melatonin 3 MG AT BEDTIME NEED.. 07/12 0015 AC 07/12 PO 0033 Oxybutynin Chloride 5 MG Q48@2100 07/10 2100 AC PO Polyethylene Glycol 17 GM DAILY 07/10 899 AC 07/12 PO 0947 Senna/Docusate Sodium 2 TAB DAILY PRN 07/10 0230 AC 07/10 PO 2259 Tetrahydrozoline HCl 1 GTT BID PRN 07/10 0115 AC 07/12 OPH 0034 Tramadol HCl 50 MG Q4P PRN 07/11 1230 AC PO Tramadol HCl 50 MG Q4-6 PRN PRN 07/11 1030 DC 07/11 PO 1041 Last 24 Hrs of Lab/Beltran Results Last 24 Hrs of Labs/Mics: Laboratory Tests 07/12/17 0720: Anion Gap 6, Estimated GFR 59 L, BUN/Creatinine Ratio 32.2 H, CBC w Diff NO MAN DIFF REQ, RBC 3.43 L, MCV 92.4, MCH 30.5, MCHC 33.0, RDW 14.1, MPV 8.1, Gran % 65.2, Lymphocytes % 19.3 L, Monocytes % 8.3, Eosinophils % 6.6 H, Basophils % 0.6, Absolute Granulocytes 3.8, Absolute Lymphocytes 1.1 L, Absolute Monocytes 0.5, Absolute Eosinophils 0.4, Absolute Basophils 0 Assessment/Plan Assessment: 86 yo F with PMH of hypertension and urinary incontinence presented to the ED for right hip pain after having a fall. On admission labs were significant for leukocytosis, mild hyponatremia (Na 136), and elevated BUN/CR of 36 and 1.1. Assessment: 1. Right Femoral Neck Fracture-status post pinning 2. SONA-resolved 3. History of Hypertension Plan: * Continue pain control with tylenol and tramadol * Underwent successful repair of femoral neck fracture. Patient is cleared by orthopedic and recommends no anticoagulation postoperatively. Spoke to surgical PA who relayed the same information. Ideally patient should be on anti- coagulation for 4 weeks. * AK I-resolved. Today creatinine 0. 9 * PT/OT eval. PT recommended short-term rehabilitation. Patient agrees to the plan. * Bowel regimen * Diet: Heart Healthy diet * DVT Prophylaxis: SC Lovenox * Code Status: Full Code Problem List: 1. Subcapital fracture of hip Pain Ratin Pain Location: none Pain Goal: Remain pain free Pain Plan: tylenol Tomorrow's Labs & Rationales: none More Harper MD 07/12/17 1203: Attending MD Review Statement Attending Statement Attending MD Statement: examined this patient, discuss w/resident/PA/[employer], agreed w/resident/PA/[employer], reviewed EMR data (avail), discussed with nursing, discussed with case mgmt, reviewed images, amended to note Attending Assessment/Plan: Patient seen and examined, feels ok. Denies any complaints, pain is under reasonable control. Vital Signs Date Time Temp Pulse Resp B/P B/P Pulse O2 O2 Flow FiO2 Mean Ox Delivery Rate 07/12 1126 Room Air Room Air 07/12 0946 86 120/64 07/12 0602 98.7 86 20 120/64 94 Room Air 07/11 2220 98.9 86 20 120/60 92 Room Air 07/11 1518 98.4 82 20 132/84 94 on exam: aox3, nad cv; s1, s2, rrr resp; clear abd: soft, nt, bs+ ext; no edema ms: + dressing on right hip. Laboratory Tests 07/12 0720 Chemistry Sodium (137 - 145 mmol/L) 134 L Potassium (3.5 - 5.1 mmol/L) 4.5 Chloride (98 - 107 mmol/L) 100 Carbon Dioxide (22 - 30 mmol/L) 29 Anion Gap (5 - 16) 6 BUN (7 - 17 mg/dL) 29 H Creatinine (0.5 - 1.0 mg/dL) 0.9 Estimated GFR (>60 ml/min) 59 L BUN/Creatinine Ratio (7 - 25 %) 32.2 H Hematology CBC w Diff NO MAN DIFF REQ WBC (4.8 - 10.8 /CUMM) 5.9 RBC (4.20 - 5.40 /CUMM) 3.43 L Hgb (12.0 - 16.0 G/DL) 10.5 L Hct (37 - 47 %) 31.7 L MCV (81.0 - 99.0 FL) 92.4 MCH (27.0 - 31.0 PG) 30.5 MCHC (33.0 - 37.0 G/DL) 33.0 RDW (11.5 - 14.5 %) 14.1 Plt Count (130 - 400 /CUMM) 132 MPV (7.4 - 10.4 FL) 8.1 Gran % (42.2 - 75.2 %) 65.2 Lymphocytes % (20.5 - 51.1 %) 19.3 L Monocytes % (1.7 - 9.3 %) 8.3 Eosinophils % (0 - 5 %) 6.6 H Basophils % (0.0 - 2.0 %) 0.6 Absolute Granulocytes (1.4 - 6.5 /CUMM) 3.8 Absolute Lymphocytes (1.2 - 3.4 /CUMM) 1.1 L Absolute Monocytes (0.10 - 0.60 /CUMM) 0.5 Absolute Eosinophils (0.0 - 0.7 /CUMM) 0.4 Absolute Basophils (0.0 - 0.2 /CUMM) 0 A/P: 86 y/o F with pmh sig for hypertension and urinary incontinence, admitted with right hip pain after fall, found to have Impacted right subcapital femoral neck fracture. S/P Right Hip Femoral Neck Fracture Closed Optimization Of Alignment And Minimally Invasive Open Interfragmentary Screw Fixation POD #3 today. Current pain management is adequate. Patient needs to go to rehabilitation. Patient does have a bed available. Please check with orthopedic about duration for anticoagulation and if it is indicated. We will resume her home medications. Patient is stable for discharge to rehabilitation today if bed available.
--- NOTE | 2017-07-12 07:42 | PN- Orthopedic ---
See Addendum Subjective Subjective: Awake, alert No complaints yesterday Pain is well controlled today - pt taking ultram as needed for pain mgmt Tolerating diet, no nausea Objective Vital Signs and I&Os Vital Signs Date Time Temp Pulse Resp B/P B/P Pulse O2 O2 Flow FiO2 Mean Ox Delivery Rate 07/12 0602 98.7 86 20 120/64 94 Room Air 07/11 2220 98.9 86 20 120/60 92 Room Air 07/11 1518 98.4 82 20 132/84 94 Intake & Output 07/12 0800 07/12 0000 07/11 1600 07/11 0800 07/11 0000 07/10 1600 Intake Total 225 1000 037 553 1994 Output Total 800 550 800 450 Balance 225 200 -190 -200 550 Intake, IV 125 200 150 Intake, Oral 100 800 360 600 850 Output, Urine 800 550 800 450 Physical Exam: afebrile, vss General: alert and oriented times three Ext: RLE - warm, no edema, normosenate, good 5/5 SASHA Wd: clean and dry, no surrounding erythema or drainage Assessment/Plan Assessment/Plan 86yo female s/p R hip perc pinning pod 3 Plan is to dc to short term rehab today if medically cleared Pain management with ultram/ES tylenol WBAT - goal is to return to baseline Clean, dry dressing change daily. Keep incision clean and dry. May shower, no bathing or soaking Follow up with Dr Long 10-14 days after discharge - call the office for an appointment Per Dr Long, no anticoagulation needed for post op ppx. Any ac ordered is at the discretion of the medical service for medical reasons.
--- NOTE | 2017-07-12 08:02 | Patient Discharge Instructions ---
Discharge Instructions General Discharge Information You were seen/treated for: RT FEMORAL NECK FRACTURE STATUS post pinning Watch for these problems: In case pain,fall,LOC, SOB,chest pain go to nearest ER. Do not soak the wound: Yes Other wound care: Clean, dry dressing change daily. Keep incision clean and dry. No bathing or soaking. May shower. Special Instructions: Please follow-up with your primary care provider within 1-2 weeks of discharge. Please follow-up with Darryl Long MD in 10-14 days. Diet Continue normal diet: No Recommended Diet: Heart Healthy Activity Full Activity/No Limits: No Activity Self Limited: Yes Acute Coronary Syndrome Inclusion Criteria At DC or during hospital stay patient has or had the following: ACS DIAGNOSIS No Discharge Core Measures Meds if any: Prescribed or Continued at Discharge Meds if any: NOT Prescribed or Continued at Discharge Congestive Heart Failure Inclusion Criteria At DC or during hospital stay patient has or had the following: CHF DIAGNOSIS No Discharge Core Measures Meds if any: Prescribed or Continued at Discharge Meds if any: NOT Prescribed or Continued at Discharge Cerebrovascular accident Inclusion Criteria At DC or during hospital stay patient has or had the following: CVA/TIA Diagnosis No Discharge Core Measures Meds if any: Prescribed or Continued at Discharge Meds if any: NOT Prescribed or Continued at Discharge Venous thromboembolism Inclusion Criteria VTE Diagnosis No VTE Type NONE VTE Confirmed by (Test) NONE Discharge Core Measures - Per Current guidelines, there needs to be overlap - treatment for the first 5 days of Warfarin therapy. - If discharged on Warfarin prior to 5 days of - overlap therapy, the patient will need to be - assessed for post discharge needs including - *Post discharge parental anticoagulation - *Warfarin and/or parental anticoagulation education - *Follow up date to check INR post discharge At least 5 days overlap therapy as Inpatient No Meds if any: Prescribed or Continued at Discharge Note: Overlap Therapy is Warfarin and Anticoagulant Meds if any: NOT Prescribed or Continued at Discharge
[2017-07-12 08:51] LABS: ABSOLUTE BASOPHIL COUNT 0 /CUMM (0.0-0.2); ABSOLUTE EOSINOPHIL COUNT 0.4 /CUMM (0.0-0.7); ABSOLUTE GRANULOCYTE CT 3.8 /CUMM (1.4-6.5); ABSOLUTE LYMPH COUNT 1.1 /CUMM (1.2-3.4); ABSOLUTE MONOCYTE COUNT 0.5 /CUMM (0.10-0.60); BASOPHIL % 0.6 % (0.0-2.0); EOSINOPHIL % 6.6 % (0-5); GRANULOCYTE % 65.2 % (42.2-75.2); HEMATOCRIT 31.7 % (37-47); MEAN CORPUSCULAR HGB 30.5 PG (27.0-31.0); MEAN CORPUSCULAR VOLUME 92.4 FL (81.0-99.0); MEAN PLATELET VOLUME 8.1 FL (7.4-10.4); PLATELET COUNT 132 /CUMM (130-400); RBC DISTRIBUTION WIDTH 14.1 % (11.5-14.5); RED BLOOD CELL CT 3.43 /CUMM (4.20-5.40); WHITE BLOOD CELL COUNT 5.9 /CUMM (4.8-10.8)
[2017-07-12] MEDS ORDERED: TRAMADOL HCL50 M1 PO (08:53)
[2017-07-12] MEDS ORDERED: MELATONIN3 M4 PO (08:57)
--- NOTE | 2017-07-12 13:05 | Discharge Summary ---
Visit Information Visit Dates Admission Date: 07/09/17 Discharge Date: 07/12/17 Hospital Course Course Attending Physician: More Harper MD Primary Care Physician: Stepan Devine MD Hospital Course: 86-year-old woman with past medical history of hypertension presenting to [facility] ED on 07/09/2017 after a fall. She was walking her dog while she fell over, landing on her right hip with significant right hip pain and inability to walk, found to have closed right subcapital femoral neck fracture. Did not hit head or lose consciousness, no symptoms prior to or after fall. Non-smoker, no family or personal history of cardiac disease, active, able to walk for long distances and up stairs without SOB or chest pain. EKG NSR, labs normal. Patient was deemed low cardiac risk for surgery. She was medically optimized for surgery. Vitals upon admission. Temperature 97.8, pulse 140 106, respiratory rate 18-20, blood pressure 136/72 had saturations 96% on room air. Pertinent labs. White count 16, H&H 14.1/42.8 and platelet count 190. Sodium 136, potassium 4.4, chloride 99 and bicarbonate 26. BUN/creatinine 36/ 1.1. Patient was evaluated by the orthopedic service and after medical optimization, underwent a minimally invasive interfragmentary screw fixation. Patient tolerated the procedure well. Postop her pain was optimally controlled. She was evaluated by physical therapy, they [facility]. Instructions per the orthopedic team as follows: "WBAT - goal is to return to baseline Clean, dry dressing change daily. Keep incision clean and dry. May shower, no bathing or soaking Follow up with Dr Long 10-14 days after discharge - call the office for an appointment Per Dr Long, no anticoagulation needed for post op ppx. This was discussed with orthopedi team at length and they did not recommend any anticogulation post operatively. Patient will be discharged to short-term rehabilitation, without any anticoagulation. Recommend early ambulation. Allergies: Coded Allergies: aspirin (Intermediate, HIVES 07/09/17) morphine (UNKNOWN 07/09/17) Disposition Summary Disposition Principal Diagnosis: Impacted right subcapital femoral neck fracture. Additional Diagnosis: Status post right hip percutaneous pinning Discharge Disposition: SNF Discharge Instructions General Discharge Information Code Status: Full Code Patient's Diet: Heart healthy diet. Patient's Activity: Pain management with ultram/ES tylenol WBAT - goal is to return to baseline Follow-Up Instructions/Appts: Clean, dry dressing change daily. Keep incision clean and dry. May shower, no bathing or soaking Follow up with Dr Long 10-14 days after discharge - call the office for an appointment Medications at Discharge Discharge Medications: Continue taking these medications: Triamterene/Hydrochlorothiazid (Triamterene-Hctz 37.5-25 MG Cp) 37.5 MG-25 MG CAPSULE 1 Capsule ORAL DAILY Qty = 90 Comments: NOT TAKEN IN HOSPITAL Mirabegron (Myrbetriq) 50 MG TAB.ER.24H 1 Tablet ORAL DAILY Qty = 90 Comments: NOT TAKEN IN HOSPITAL Solifenacin Succinate (Vesicare) 5 MG TABLET 1 Tablet ORAL Every other day Qty = 45 Comments: NOT TAKEN IN HOSPITAL Lisinopril (Lisinopril) 20 MG TABLET 1 Tablet ORAL DAILY Comments: Last Taken: 07/12/17 Time: 0945 am Start taking the following new medications: Tramadol HCl (Tramadol HCl) 50 MG TABLET 1 Milligram ORAL EVERY 4 HOURS NEEDED as needed for PAIN SCALE 7-10 ( SEVERE) Qty = 10 No Refills Comments: NOT TAKEN IN HOSPITAL Melatonin (Melatonin) 3 MG TABLET 3 Milligram ORAL AT BEDTIME as needed for INSOMNIA Qty = 30 No Refills Comments: Last Taken: 07/12/17 Time: 0015 Copies To: Ethan SCRUGGS,Darryl Vipul; Nilson SCRUGGS,Stepan Rodrigues Attending MD Review Statement Documenting Attending: More Harper MD
[2017-07-12 14:39] VITALS: BP 120/64
[2017-07-12] MEDS ORDERED: LISINOPRIL20 M1 PO (14:56)
[2017-07-12 15:00] VITALS: BP 112/66
== END 2017-07-12 15:10 | DRG 481 ==
LOC: ERH 12:06 → ER-OR 12:44 → PACUH 20:28 → 2NA 20:28 → ENRESERV 20:45 → ENTRNSPT 21:27 → 2NA 21:47 → CMPTRNSPT 22:00 → 2NA 07-12 07:34 → ENPENDDIS 07-12 13:19 → 2NA 07-12 15:10
PROVIDERS: Internal Medicine; Physician Assistant; Physician Assistant Medical; Student in an Organized Health Care Education/Training Program
PROC: 0QS804Z Reposition Right Femoral Shaft with Internal Fixation Device, Open Approach (ICD-10-PCS; principal; 2017-07-09)
DX: S72.011A Unspecified intracapsular fracture of right femur, initial encounter for closed fracture (principal); N17.9 Acute kidney failure, unspecified; E87.1 Hypo-osmolality and hyponatremia; I10 Essential (primary) hypertension; N32.81 Overactive bladder; W01.0XXA Fall on same level from slipping, tripping and stumbling without subsequent striking against object, initial encounter; Y93.01 Activity, walking, marching and hiking; J45.909 Unspecified asthma, uncomplicated; R32 Unspecified urinary incontinence; Z88.6 Allergy status to analgesic agent; Z88.5 Allergy status to narcotic agent; Z88.8 Allergy status to other drugs, medicaments and biological substances
CPT/HCPCS: 2NASP; 36592; 72110; 72170; 73502-RT; 81001; 82436; 87086; 93005; 93010; 96374; 97110-GO; 97116-GO; 97161-GP; 97530-GO; C1713; J0131; J0690; J1100; J1644; J1650; J2250; J2405; J3010